=== PATIENT | male | born 1975 | race Two or more races ===

== ENCOUNTER 2019-04-18 09:08 | Emergency (ER) | payer OTHER ==
[~2019-04-18] VITALS: Ht 182.9 cm; Wt 79.4 kg
[2019-04-18] VITALS (9 sets, daily range): BP systolic 108–142; BP diastolic 56–91
[2019-04-18] MEDS ORDERED: DiphenhydrAMINE 50mg/ml Inj ONE (09:12)
[2019-04-18] MEDS ORDERED: LORazepam Inj 2mg/ml 1ml ONE (09:12)
[2019-04-18] MEDS ORDERED: DiphenhydrAMINE 50mg/ml Inj IVP ONE ×2 (09:15→09:30)
[2019-04-18] MEDS ORDERED: LORazepam Inj 2mg/ml 1ml IV ONE ×2 (09:15)
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
[2019-04-18] MEDS ORDERED: Adenosine 6mg/2ml Inj ONE (09:36)
[2019-04-18] MEDS ORDERED: Adenosine 6mg/2ml Inj IVP ONE (09:45)
[2019-04-18 09:52] LABS: BASOPHILS % (AUTO) 1.2 % (0.0-2.0); EOSINOPHILS % (AUTO) 0.1 % (0.0-3.0); HEMATOCRIT 38.6 % (42.0-52.0); HEMOGLOBIN 13.4 G/DL (14.2-18.0); LYMPHOCYTES % (AUTO) 11.8 % (20.0-45.0); MEAN CORPUSCULAR VOLUME 88 FL (80-99); MONOCYTES % (AUTO) 10.7 % (1.0-10.0); NEUTROPHILS % (AUTO) 76.2 % (45.0-75.0); PLATELET COUNT 202 K/UL (150-450); RED BLOOD COUNT 4.41 M/UL (4.70-6.10); RED CELL DISTRIBUTION WIDTH 11.1 % (11.6-14.8); WHITE BLOOD COUNT 8.5 K/UL (4.8-10.8)
[2019-04-18 10:01] LABS: ANION GAP 16 mmol/L (5-15); BLOOD UREA NITROGEN 43 mg/dL (7-18); CALCIUM 8.7 MG/DL (8.5-10.1); CARBON DIOXIDE 25 MMOL/L (21-32); CHLORIDE 103 MMOL/L (98-107); CREATININE 1.7 MG/DL (0.55-1.30); POTASSIUM 3.3 MMOL/L (3.5-5.1); SODIUM 143 MMOL/L (136-145)
[2019-04-18 10:10] LABS: ALANINE AMINOTRANSFERASE 92 U/L (12-78); ALBUMIN 4.2 G/DL (3.4-5.0); ALBUMIN/GLOBULIN RATIO 1.1 (1.0-2.7); ALKALINE PHOSPHATASE 84 U/L (46-116); ASPARTATE AMINO TRANSFERASE 160 U/L (15-37); BILIRUBIN,TOTAL 1.4 MG/DL (0.2-1.0)
[2019-04-18 10:12] LABS: BILIRUBIN,DIRECT 0.3 MG/DL (0.0-0.3)
[2019-04-18 10:47] LABS: APPEARANCE,URINE SLIGHTLY CLOUDY; BILIRUBIN, URINE NEGATIVE (NEGATIVE); COLOR,URINE PALE YELLOW; GLUCOSE, URINE (UA) NEGATIVE (NEGATIVE); KETONES,URINE 2+ (NEGATIVE); LEUKOCYTE ESTERASE ,URINE NEGATIVE (NEGATIVE); NITRITE,URINE NEGATIVE (NEGATIVE); PH,URINE 5 (4.5-8.0); PROTEIN,URINE 2+ (NEGATIVE); UROBILINOGEN,URINE NORMAL MG/DL (0.0-1.0)
[2019-04-18] MEDS ORDERED: Tetanus/Diptheria/Pertussis IM ONE (15:00)
[2019-04-18 15:37] LABS: ANION GAP 11 mmol/L (5-15); BLOOD UREA NITROGEN 30 mg/dL (7-18); CARBON DIOXIDE 25 MMOL/L (21-32); CHLORIDE 110 MMOL/L (98-107); CREATININE 1.1 MG/DL (0.55-1.30); POTASSIUM 3.3 MMOL/L (3.5-5.1); SODIUM 146 MMOL/L (136-145)
== END 2019-04-18 16:38 ==
LOC: EDBD 09:08 → EMR 09:55 → EDBD 09:55 → EMR 16:38
DX: R45.1 Restlessness and agitation (principal); I47.1 Supraventricular tachycardia
CPT/HCPCS: 36415; 80048; 80053; 80307; 81003; 82248; 84484; 85025; 90471; 90715; 96361; 96374; 96375; 96376; 99291; G0480; J0153; J1200; J7030